=== PATIENT | male | born 1960 | race Caucasian/White ===

== ENCOUNTER 2017-12-09 12:16 | Emergency (ER) | payer OTHER | END 2017-12-09 13:33 | disposition left against medical advice (07) | LOC: ERS 12:16 | DX: Z53.21 Procedure and treatment not carried out due to patient leaving prior to being seen by health care provider (principal) | CPT/HCPCS: 93005 ==

== ENCOUNTER 2021-01-21 10:54 | Emergency (ER) | payer OTHER ==
[2021-01-21 11:19] LABS: #Basophils 0.1 thou/uL (0.0-0.2); #Eosinphils 0.1 thou/uL (0.0-0.7); #Lymphocytes 2.2 thou/uL (1.20-3.40); #Neutrophils 7.4 thou/uL (1.40-6.50); %Basophils 0.5 % (0.0-1.0); %Eosinophils 0.7 % (0.0-10.0); %Lymphocytes 20.1 % (21.0-51.0); %Monocytes 9.1 % (0.0-10.0); %Neutrophils 69.6 % (42.0-75.0); Hemoglobin 16.9 g/dL (14.0-18.0); Mean Corpuscular HGB CONC 34.6 g/dL (32.0-36.0); Mean Corpuscular Volume 92.5 fL (78.0-98.0); Platelet Count 148 thou/uL (130-400); RBC Distribution Width 12.2 % (11.5-14.5); Red Blood Cell (RBC) Count 5.27 mill/uL (4.70-6.10); White Blood Cell (WBC) Count 10.7 thou/uL (4.8-10.8)
[2021-01-21 11:42] LABS: ALT (SGPT) 11 U/L (8-55); AST (SGOT) 16 U/L (5-34); Albumin 4.1 g/dL (3.5-5.0); Alkaline Phosphatase 73 U/L (40-110); Anion Gap 15 mmol/L (10-20); BUN (Urea Nitrogen) 18 mg/dL (8.4-25.7); Bilirubin, Total 0.5 mg/dL (0.2-1.2); Calc. Creatinine Clearance 0 mL/min (70-130); Calcium 9.9 mg/dL (7.8-10.44); Carbon Dioxide 23 mmol/L (22-29); Chloride 101 mmol/L (98-107); Globulin 3.7 g/dL (2.4-3.5); Glucose 151 mg/dL (70-105); Potassium 4.2 mmol/L (3.5-5.1); Protein, Total 7.8 g/dL (6.0-8.3); Sodium 135 mmol/L (136-145)
[2021-01-21] MEDS ORDERED: Aspirin Chewable 81 MG TAB ONE (12:47)
== END 2021-01-21 13:54 | disposition left against medical advice (07) ==
LOC: ERS 10:54
DX: R07.89 Other chest pain (principal); R00.2 Palpitations; I25.2 Old myocardial infarction; I25.10 Atherosclerotic heart disease of native coronary artery without angina pectoris; I10 Essential (primary) hypertension; F17.210 Nicotine dependence, cigarettes, uncomplicated; J43.9 Emphysema, unspecified; Z79.899 Other long term (current) drug therapy
CPT/HCPCS: 36415; 71045; 80053; 83880; 84443; 84484; 85025; 85379; 93005

== ENCOUNTER 2022-01-02 19:32 | Inpatient (IN) | payer OTHER, SELFPAY ==
[2022-01-02 20:04] LABS: #Basophils 0.1 thou/uL (0.0-0.2); #Eosinphils 0.1 thou/uL (0.0-0.7); #Lymphocytes 3.1 thou/uL (1.20-3.40); #Monocytes 0.7 thou/uL (0.11-0.59); #Neutrophils 6.4 thou/uL (1.40-6.50); %Basophils 1.1 % (0.0-1.0); %Eosinophils 1.4 % (0.0-10.0); %Lymphocytes 29.5 % (21.0-51.0); %Monocytes 6.4 % (0.0-10.0); %Neutrophils 61.8 % (42.0-75.0); Hemoglobin 17.7 g/dL (14.0-18.0); Mean Corpuscular HGB CONC 33.5 g/dL (32.0-36.0); Mean Corpuscular Hemoglobin 34.1 pg (27.0-31.0); Mean Platelet Volume 6.3 fL (7.4-10.4); Platelet Count 190 thou/uL (130-400); White Blood Cell (WBC) Count 10.4 thou/uL (4.8-10.8)
[2022-01-02] MEDS ORDERED: Aspirin Chewable 81 MG TAB ONE (20:19)
[2022-01-02 20:41] LABS: ALT (SGPT) 20 U/L (8-55); AST (SGOT) 35 U/L (5-34); Albumin 3.4 g/dL (3.4-4.8); Alkaline Phosphatase 96 U/L (40-110); Anion Gap 18 mmol/L (10-20); BUN (Urea Nitrogen) 15 mg/dL (8.4-25.7); Bilirubin, Total 0.8 mg/dL (0.2-1.2); Calc. Creatinine Clearance 0 mL/min (70-130); Calcium 9.2 mg/dL (7.8-10.44); Carbon Dioxide 26 mmol/L (23-31); Chloride 91 mmol/L (98-107); Glucose 128 mg/dL (80-115); Potassium 4.5 mmol/L (3.5-5.1); Protein, Total 7.4 g/dL (5.8-8.1); Sodium 130 mmol/L (136-145)
[2022-01-02 20:46] LABS: CKMB 2.8 ng/mL (0-6.6)
[2022-01-02] MEDS ORDERED: Furosemide 40 MG/4 ML VIAL ONE (21:40)
[2022-01-02] MEDS ORDERED: Acetaminophen 325 MG TAB PO PRN (22:15)
[2022-01-02] MEDS ORDERED: Bisacodyl 5 MG TAB PO PRN (22:20)
[2022-01-02] MEDS ORDERED: Senokot S 8.6-50 MG TAB PO PRN (22:20)
[2022-01-02] MEDS ORDERED: Lorazepam 1 MG TAB PO PRN (22:25)
[2022-01-02] MEDS ORDERED: Lorazepam 2 MG/ML VIAL IM PRN (22:25)
[2022-01-02] MEDS ORDERED: Ondansetron ODT 4 MG TAB PO PRN (22:25)
[2022-01-02] MEDS ORDERED: Nitroglycerin 0.4 MG TAB (25 Tab Bottle) SL PRN (22:28)
[2022-01-02] MEDS ORDERED: Lorazepam 1 MG TAB PO SCH (22:30)
[2022-01-02] MEDS ORDERED: Electrolyte Replacement Protocol 1 EACH FS SCH (22:30)
[2022-01-02 23:07] LABS: #Eosinphils 0.1 thou/uL (0.0-0.7); #Lymphocytes 2.4 thou/uL (1.20-3.40); #Monocytes 0.6 thou/uL (0.11-0.59); #Neutrophils 5.7 thou/uL (1.40-6.50); %Basophils 0.5 % (0.0-1.0); %Eosinophils 1.6 % (0.0-10.0); %Lymphocytes 27.1 % (21.0-51.0); %Monocytes 6.9 % (0.0-10.0); %Neutrophils 63.9 % (42.0-75.0); Hemoglobin 17.7 g/dL (14.0-18.0); Mean Corpuscular HGB CONC 33.9 g/dL (32.0-36.0); Mean Corpuscular Hemoglobin 34.8 pg (27.0-31.0); Mean Platelet Volume 6.2 fL (7.4-10.4); Platelet Count 183 thou/uL (130-400); RBC Distribution Width 12.1 % (11.5-14.5); Red Blood Cell (RBC) Count 5.11 mill/uL (4.70-6.10); White Blood Cell (WBC) Count 8.9 thou/uL (4.8-10.8)
[2022-01-02 23:18] LABS: Phosphorus 5.3 mg/dL (2.3-4.7)
[2022-01-02 23:24] LABS: Troponin I 0.052 ng/mL (< 0.028)
[2022-01-02 23:28] LABS: ALT (SGPT) 20 U/L (8-55); AST (SGOT) 31 U/L (5-34); Albumin 3.3 g/dL (3.4-4.8); Alkaline Phosphatase 102 U/L (40-110); Anion Gap 17 mmol/L (10-20); BUN (Urea Nitrogen) 15 mg/dL (8.4-25.7); Bilirubin, Total 0.7 mg/dL (0.2-1.2); Calc. Creatinine Clearance 0 mL/min (70-130); Calcium 9.1 mg/dL (7.8-10.44); Carbon Dioxide 26 mmol/L (23-31); Chloride 92 mmol/L (98-107); Globulin 3.8 g/dL (2.4-3.5); Glucose 128 mg/dL (80-115); Magnesium 1.3 mg/dL (1.6-2.6); Potassium 4.7 mmol/L (3.5-5.1); Protein, Total 7.1 g/dL (5.8-8.1); Sodium 130 mmol/L (136-145)
[2022-01-02] MEDS ORDERED: Pantoprazole 40 MG VIAL IVP SCH (23:29)
[2022-01-02 23:46] VITALS: BMI 45.5
[2022-01-02] MEDS: Nicotine 21 MG PATCH TD SCH (23:47)
[2022-01-02] MEDS: Thiamine HCl 200 MG/2 ML VIAL SLOW IVP SCH (23:47)
[2022-01-03 00:06] LABS: SARS-CoV-2 NAA Rapid Test Not Detected (NotDetected)
[2022-01-03] MEDS ORDERED: Magnesium Sulfate In Water 4 GM in Premix Bag 1 BAG IVPB SCH (00:30)
[2022-01-03 00:54] LABS: Amphetamine Not Detected (NotDetected); Barbiturates Screen Not Detected (NotDetected); Benzodiazepine Screen Not Detected (NotDetected); Cocaine Metabolite Screen Detected (NotDetected); Methadone Not Detected (NotDetected); Methamphetamine Not Detected (NotDetected); Opiate Screen Not Detected (NotDetected); Oxycodone Screen Not Detected (NotDetected); Phencyclidine (PCP) Not Detected (NotDetected); THC/Cannabinoid Screen Not Detected (NotDetected); Tricyclic Screen Not Detected (NotDetected)
[2022-01-03 02:46] LABS: Troponin I 0.041 ng/mL (< 0.028)
[2022-01-03] MEDS ORDERED: hydrALAZINE 20 MG/ML VIAL SLOW IVP SCH (04:30)
[2022-01-03] MEDS ORDERED: Furosemide 40 MG/4 ML VIAL SLOW IVP SCH (06:00)
[2022-01-03 06:22] LABS: Hemoglobin A1c 6.2 % (4.0-6.0)
[2022-01-03] MEDS: Mometasone 200 MCG/Formoterol 5 MCG 120 PUFF INHALER INH SCH ×2 (07:10→18:38)
[2022-01-03] MEDS ORDERED: Pantoprazole 40 MG VIAL IVP SCH (09:00)
[2022-01-03] MEDS: Multivit, Therapeutic 1 TAB PO SCH (09:01)
[2022-01-03] MEDS: Lorazepam 1 MG TAB PO SCH ×3 (09:02→20:24)
[2022-01-03] MEDS: Folic Acid 1 MG TAB PO SCH (09:02)
[2022-01-03] MEDS: Aspirin 81 mg Enteric Coated Tablet PO SCH (09:02)
[2022-01-03] MEDS: Heparin 5,000 UNITS/ML VIAL SC SCH ×2 (09:10→20:21)
[2022-01-03 10:54] LABS: Syphilis Antibody Nonreactive (Nonreactive); Syphilis Antibody Index 0.05 S/CO (<1.00 Non-Reactive)
[2022-01-03] MEDS ORDERED: cloNIDine 0.1 MG TAB PO PRN (15:33)
[2022-01-03] MEDS: Lorazepam 2 MG/ML VIAL SLOW IVP PRN (15:48)
[2022-01-03] MEDS: Carvedilol 6.25 MG TAB PO SCH (20:21)
[2022-01-03] MEDS: Gabapentin 300 MG CAP PO SCH (20:21)
[2022-01-03 20:33] VITALS: BP 134/86
[2022-01-03] MEDS ORDERED: QUEtiapine Fumarate ER 50 MG TAB PO SCH ×2 (21:00)
[2022-01-03] MEDS ORDERED: Lorazepam 1 MG TAB PO PRN (22:25)
[2022-01-03] MEDS: Nicotine 21 MG PATCH TD SCH (22:53)
[2022-01-03] MEDS: Thiamine HCl 200 MG/2 ML VIAL SLOW IVP SCH (22:53)
[2022-01-04] MEDS: Lorazepam 2 MG/ML VIAL SLOW IVP PRN (00:02)
[2022-01-04] MEDS: Lorazepam 1 MG TAB PO SCH ×2 (01:57→12:38)
[2022-01-04 04:01] LABS: ALT (SGPT) 15 U/L (8-55); AST (SGOT) 19 U/L (5-34); Albumin 3.3 g/dL (3.4-4.8); Alkaline Phosphatase 107 U/L (40-110); Anion Gap 14 mmol/L (10-20); BUN (Urea Nitrogen) 17 mg/dL (8.4-25.7); Bilirubin, Total 0.8 mg/dL (0.2-1.2); Calc. Creatinine Clearance 102 mL/min (70-130); Calcium 9.3 mg/dL (7.8-10.44); Carbon Dioxide 32 mmol/L (23-31); Chloride 90 mmol/L (98-107); Globulin 3.8 g/dL (2.4-3.5); Glucose 133 mg/dL (80-115); Magnesium 1.5 mg/dL (1.6-2.6); Potassium 4.9 mmol/L (3.5-5.1); Protein, Total 7.1 g/dL (5.8-8.1); Sodium 131 mmol/L (136-145)
[2022-01-04] MEDS ORDERED: Dexmedetomidine In 0.9 % NaCl 100 ML IVPB SCH (05:15)
[2022-01-04] MEDS ORDERED: Magnesium 2 GM/50 ML(in water) 2 GM in Premix Bag 1 BAG IVPB SCH (05:45)
[2022-01-04] MEDS: Mometasone 200 MCG/Formoterol 5 MCG 120 PUFF INHALER INH SCH (06:54)
[2022-01-04] MEDS ORDERED: Furosemide 20 MG TAB PO SCH (09:00)
[2022-01-04 09:21] LABS: Actual Bicarbonate (HCO3a) 37.5 mEq/L (22-28); Base Excess (BEa) 7.6 mEq/L (-2.0 to +3.0); Carboxyhemoglobin (COHb) 1.2 gm% (0.0-3.0); Hemoglobin (Hb) 18.1 g/dL (14.0-18.0); O2 Tension (PaO2), arterial 111.2 mmHg (> 80.0); Potassium - ABG Lab 5.25 mmol/L (3.70-5.30); pH, Arterial 7.33 (7.35-7.45)
[2022-01-04 09:23] LABS: Puncture Site LRA
[2022-01-04] MEDS: Gabapentin 300 MG CAP PO SCH (09:48)
[2022-01-04] MEDS: Aspirin 81 mg Enteric Coated Tablet PO SCH (09:48)
[2022-01-04] MEDS: Folic Acid 1 MG TAB PO SCH (09:48)
[2022-01-04] MEDS: Carvedilol 6.25 MG TAB PO SCH (09:48)
[2022-01-04] MEDS: Heparin 5,000 UNITS/ML VIAL SC SCH (09:49)
[2022-01-04] MEDS: Multivit, Therapeutic 1 TAB PO SCH (09:49)
[2022-01-04 13:35] VITALS: TEMP 98.2
[2022-01-04] MEDS ORDERED: Lorazepam 1 MG TAB PO PRN (22:25)
[2022-01-04] MEDS ORDERED: Lorazepam 0.5 MG TAB PO SCH (22:30)
[2022-01-05] MEDS ORDERED: Thiamine 100 MG TAB PO SCH (21:00)
[2022-01-05] MEDS ORDERED: Lorazepam 0.5 MG TAB PO PRN (22:25)
== END 2022-01-04 17:41 | disposition home or self-care (01) | DRG 896 ==
LOC: ERS 19:32 → IMCU/EMU 21:57
PROVIDERS: ADMIT Internal Medicine; ATTEND Family Medicine
PROC: HZ2ZZZZ Detoxification Services for Substance Abuse Treatment (ICD-10-PCS; principal; 2022-01-02)
DX: F10.929 Alcohol use, unspecified with intoxication, unspecified (principal); I50.33 Acute on chronic diastolic (congestive) heart failure; I13.0 Hypertensive heart and chronic kidney disease with heart failure and stage 1 through stage 4 chronic kidney disease, or unspecified chronic kidney disease; N17.9 Acute kidney failure, unspecified; E66.2 Morbid (severe) obesity with alveolar hypoventilation; Z68.41 Body mass index [BMI] 40.0-44.9, adult; R07.9 Chest pain, unspecified; N18.32 Chronic kidney disease, stage 3b; I95.9 Hypotension, unspecified; I25.10 Atherosclerotic heart disease of native coronary artery without angina pectoris; J44.9 Chronic obstructive pulmonary disease, unspecified; F19.10 Other psychoactive substance abuse, uncomplicated; F17.210 Nicotine dependence, cigarettes, uncomplicated; E03.9 Hypothyroidism, unspecified; Z88.0 Allergy status to penicillin; I25.2 Old myocardial infarction; Z79.82 Long term (current) use of aspirin; Z79.899 Other long term (current) drug therapy
CPT/HCPCS: 36415; 36600; 71045; 80053; 80061; 80306; 80307; 82553; 82607; 82746; 82805; 83036; 83735; 83880; 84100; 84443; 84484; 85025; 86780; 93005; 93306; 94640; 94660; 94760; 96374; C9113; J0360; J1644; J1940; J2060; J3411; J3475; J7620; U0002

== ENCOUNTER 2022-01-29 14:35 | Observation (INO) | payer OTHER ==
[2022-01-29 15:55] LABS: #Eosinphils 0.2 thou/uL (0.0-0.7); #Lymphocytes 2.3 thou/uL (1.20-3.40); #Monocytes 0.7 thou/uL (0.11-0.59); #Neutrophils 5.7 thou/uL (1.40-6.50); %Basophils 0.3 % (0.0-1.0); %Eosinophils 1.7 % (0.0-10.0); %Monocytes 8.1 % (0.0-10.0); %Neutrophils 63.9 % (42.0-75.0); Hemoglobin 17.7 g/dL (14.0-18.0); Mean Corpuscular HGB CONC 32.5 g/dL (32.0-36.0); Mean Corpuscular Hemoglobin 33.3 pg (27.0-31.0); Mean Platelet Volume 6.9 fL (7.4-10.4); Platelet Count 144 thou/uL (130-400); RBC Distribution Width 11.9 % (11.5-14.5); Red Blood Cell (RBC) Count 5.32 mill/uL (4.70-6.10); White Blood Cell (WBC) Count 8.9 thou/uL (4.8-10.8)
[2022-01-29 16:17] LABS: ALT (SGPT) 12 U/L (8-55); AST (SGOT) 18 U/L (5-34); Albumin 3.7 g/dL (3.4-4.8); Alkaline Phosphatase 73 U/L (40-110); Anion Gap 14 mmol/L (10-20); BUN (Urea Nitrogen) 20 mg/dL (8.4-25.7); Calc. Creatinine Clearance 0 mL/min (70-130); Calcium 9.5 mg/dL (7.8-10.44); Carbon Dioxide 26 mmol/L (23-31); Chloride 103 mmol/L (98-107); Globulin 3.8 g/dL (2.4-3.5); Glucose 106 mg/dL (80-115); Potassium 4.8 mmol/L (3.5-5.1); Protein, Total 7.5 g/dL (5.8-8.1); Sodium 138 mmol/L (136-145)
[2022-01-29] MEDS ORDERED: Furosemide 40 MG/4 ML VIAL ONE (16:21)
[2022-01-29] MEDS ORDERED: Nitroglycerin 2% Ointment 1 INCH/1 GM Packet ONE (16:21)
[2022-01-29] MEDS ORDERED: Aspirin 81 mg Enteric Coated Tablet ONE (16:21)
[2022-01-29 19:02] LABS: Troponin I 0.022 ng/mL (< 0.028)
[2022-01-29 19:46] VITALS: BMI 43.1
[2022-01-29] MEDS ORDERED: Ondansetron PF 4 MG/2 ML Vial IVP PRN (21:47)
[2022-01-29] MEDS ORDERED: Acetaminophen 325 MG TAB PO PRN (21:47)
[2022-01-29] MEDS ORDERED: Nitroglycerin 0.4 MG TAB (25 Tab Bottle) SL PRN (22:10)
[2022-01-29 22:19] LABS: Troponin I 0.025 ng/mL (< 0.028)
[2022-01-30 00:11] LABS: SARS-CoV-2 PCR by NAA Not Detected (NotDetected)
[2022-01-30 04:55] LABS: #Eosinphils 0.2 thou/uL (0.0-0.7); #Lymphocytes 2.4 thou/uL (1.20-3.40); #Monocytes 0.7 thou/uL (0.11-0.59); #Neutrophils 5.2 thou/uL (1.40-6.50); %Basophils 0.5 % (0.0-1.0); %Lymphocytes 28.2 % (21.0-51.0); %Monocytes 8.1 % (0.0-10.0); %Neutrophils 61.1 % (42.0-75.0); Hemoglobin 17.2 g/dL (14.0-18.0); Mean Corpuscular Hemoglobin 34.3 pg (27.0-31.0); Platelet Count 126 thou/uL (130-400); Red Blood Cell (RBC) Count 5.01 mill/uL (4.70-6.10); White Blood Cell (WBC) Count 8.6 thou/uL (4.8-10.8)
[2022-01-30 05:24] LABS: Anion Gap 13 mmol/L (10-20); BUN (Urea Nitrogen) 18 mg/dL (8.4-25.7); Calc. Creatinine Clearance 94 mL/min (70-130); Carbon Dioxide 29 mmol/L (23-31); Chloride 102 mmol/L (98-107); Glucose 119 mg/dL (80-115); Potassium 4.6 mmol/L (3.5-5.1); Sodium 139 mmol/L (136-145)
[2022-01-30] MEDS ORDERED: Furosemide 20 MG/2 ML VIAL SLOW IVP SCH (06:00)
[2022-01-30] MEDS ORDERED: Mometasone 200 MCG/Formoterol 5 MCG 120 PUFF INHALER INH SCH (06:30)
[2022-01-30 08:06] LABS: Amphetamine Not Detected (NotDetected); Barbiturates Screen Not Detected (NotDetected); Benzodiazepine Screen Not Detected (NotDetected); Cocaine Metabolite Screen Detected (NotDetected); Methadone Not Detected (NotDetected); Methamphetamine Not Detected (NotDetected); Opiate Screen Not Detected (NotDetected); Oxycodone Screen Not Detected (NotDetected); Phencyclidine (PCP) Not Detected (NotDetected); THC/Cannabinoid Screen Not Detected (NotDetected); Tricyclic Screen Not Detected (NotDetected)
[2022-01-30 08:36] VITALS: BP 172/83; TEMP 97.9
[2022-01-30] MEDS ORDERED: Aspirin 81 mg Enteric Coated Tablet PO SCH (09:00)
[2022-01-30] MEDS ORDERED: Carvedilol 6.25 MG TAB PO SCH (09:00)
[2022-01-30] MEDS ORDERED: Folic Acid 1 MG TAB PO SCH (09:00)
[2022-01-30] MEDS ORDERED: Gabapentin 300 MG CAP PO SCH (09:00)
[2022-01-30] MEDS ORDERED: Heparin 5,000 UNITS/ML VIAL SC SCH (09:00)
[2022-01-30] MEDS ORDERED: Thiamine 100 MG TAB PO SCH (21:00)
== END 2022-01-30 09:00 | disposition left against medical advice (07) ==
LOC: ERS 14:35 → 2SW 17:30
PROVIDERS: ADMIT Internal Medicine; ATTEND Internal Medicine
DX: I16.1 Hypertensive emergency (principal); R07.2 Precordial pain; R06.02 Shortness of breath; I13.0 Hypertensive heart and chronic kidney disease with heart failure and stage 1 through stage 4 chronic kidney disease, or unspecified chronic kidney disease; N18.30 Chronic kidney disease, stage 3 unspecified; I50.33 Acute on chronic diastolic (congestive) heart failure; I25.10 Atherosclerotic heart disease of native coronary artery without angina pectoris; F14.10 Cocaine abuse, uncomplicated; F10.11 Alcohol abuse, in remission; F17.210 Nicotine dependence, cigarettes, uncomplicated; J44.9 Chronic obstructive pulmonary disease, unspecified; I25.2 Old myocardial infarction; Z53.29 Procedure and treatment not carried out because of patient's decision for other reasons; Z91.14 Patient's other noncompliance with medication regimen; Z79.82 Long term (current) use of aspirin; Z79.899 Other long term (current) drug therapy; Z88.0 Allergy status to penicillin; Z20.822 Contact with and (suspected) exposure to COVID-19
CPT/HCPCS: 36415; 71045; 80048; 80053; 80306; 83880; 84484; 85025; 93005; 94640; 96374; 96376; G0378; J1940; J7620; U0003; U0005

== ENCOUNTER 2022-03-03 09:31 | Inpatient (IN) | payer OTHER ==
[2022-03-03] MEDS ORDERED: Acetaminophen 325 MG Suppository ONE (09:41)
[2022-03-03] MEDS ORDERED: Acetaminophen 650 MG Suppository ONE (09:41)
[2022-03-03] MEDS ORDERED: Cefepime 2 GM VIAL ONE (10:05)
[2022-03-03 10:31] LABS: Bacteria/HPF 1+ HPF (None Seen); Bilirubin Negative (Negative); Blood, Urine Negative (Negative); Clarity Cloudy (Clear); Glucose, Urine (Dipstick) Normal (Negative); Ketone, Urine Negative (Negative); Leukocyte 250 Leu/uL (Negative); Nitrite Negative (Negative); Protein, Urine (Dipstick) 30 mg/dL (Neg-Trace); RBC/HPF 0-3 HPF (0-3); Specific Gravity, Urine 1.014 (1.002-1.036); Squamous Epithelial 21-50 HPF (0-3); Urobilinogen Normal mg/dL (Less than 2)
[2022-03-03 10:35] LABS: Amphetamine Detected (NotDetected); Barbiturates Screen Not Detected (NotDetected); Benzodiazepine Screen Not Detected (NotDetected); Cocaine Metabolite Screen Detected (NotDetected); Methadone Not Detected (NotDetected); Methamphetamine Detected (NotDetected); Opiate Screen Detected (NotDetected); Oxycodone Screen Not Detected (NotDetected); Phencyclidine (PCP) Not Detected (NotDetected); THC/Cannabinoid Screen Not Detected (NotDetected); Tricyclic Screen Not Detected (NotDetected)
[2022-03-03 10:54] LABS: #Lymphocytes 2.1 thou/uL (1.20-3.40); #Monocytes 1.4 thou/uL (0.11-0.59); #Neutrophils 12.9 thou/uL (1.40-6.50); %Basophils 0.2 % (0.0-1.0); %Eosinophils 0.2 % (0.0-10.0); %Lymphocytes 12.6 % (21.0-51.0); %Monocytes 8.4 % (0.0-10.0); %Neutrophils 78.6 % (42.0-75.0); Hemoglobin 19.4 g/dL (14.0-18.0); Mean Corpuscular HGB CONC 31.8 g/dL (32.0-36.0); Mean Corpuscular Hemoglobin 33.4 pg (27.0-31.0); RBC Distribution Width 13.2 % (11.5-14.5); Red Blood Cell (RBC) Count 5.79 mill/uL (4.70-6.10); White Blood Cell (WBC) Count 16.4 thou/uL (4.8-10.8)
[2022-03-03 11:11] LABS: MDiff Complete? YES; Macrocytosis SLIGHT = 6-15 cells (100X) (0-5/hpf); Mean Platelet Volume 8.5 fL (7.4-10.4); Platelet Count 67 thou/uL (130-400); Platelet Morphology Comment Appears Decreased; Polychromasia SLIGHT = 2-3 cells (100X) (0-2/hpf)
[2022-03-03 11:15] LABS: SARS-CoV-2 NAA Rapid Test Not Detected (NotDetected)
[2022-03-03 11:17] LABS: ALT (SGPT) 1229 U/L (8-55); Acetaminophen Less than 10.0 mcg/mL (10.0-30.0); Albumin 3.5 g/dL (3.4-4.8); Alcohol Less than 10 mg/dL (Less than 10); Alkaline Phosphatase 50 U/L (40-110); Anion Gap 30 mmol/L (10-20); BUN (Urea Nitrogen) 70 mg/dL (8.4-25.7); Bilirubin, Total 2.2 mg/dL (0.2-1.2); Calc. Creatinine Clearance 0 mL/min (70-130); Carbon Dioxide 19 mmol/L (23-31); Chloride 107 mmol/L (98-107); Estimated GFR 4; Glucose 114 mg/dL (83-110); Potassium 5.3 mmol/L (3.5-5.1); Protein, Total 7.5 g/dL (5.8-8.1); Salicylate Less than 8.0 mg/dL (15.0-30.0); Sodium 151 mmol/L (136-145)
[2022-03-03] MEDS ORDERED: Vancomycin 1 GM/200 ML BAG ONE (11:19)
[2022-03-03 11:25] LABS: AST (SGOT) Greater than 3500 U/L (5-34)
[2022-03-03 11:42] LABS: Actual Bicarbonate (HCO3v) 17 mEq/L (22-28); Base Excess -13.3 mEq/L (-2.0 to +3.0); Calcium, Ionized (venous) 0.89 mmol/L (1.16-1.32); Chloride (VBG) 110 mmol/L (98-106); Hemoglobin (Hb) 20.6 g/dL (12.6-17.4); Potassium (VBG) 5.28 mmol/L (3.70-5.30); pH (venous) 7.09 (7.32-7.43)
[2022-03-03 12:08] LABS: CKMB 89.3 ng/mL (0-6.6)
[2022-03-03 12:11] LABS: CK (CPK) 9005 U/L (30-200)
[2022-03-03] MEDS ORDERED: Norepinephrine 8 MG/0.9% NS 250 ML ONE (12:17)
[2022-03-03 13:30] LABS: INR-International Normal Ratio 1.8; Prothrombin Time 20.8 sec (12.0-14.7)
[2022-03-03 13:31] LABS: PTT 42.6 sec (22.9-36.1)
[2022-03-03 13:55] LABS: Lactic Acid 2.4 mmol/L (0.5-2.2)
[2022-03-03] MEDS ORDERED: Aspirin 300 MG Suppository ONE (13:55)
[2022-03-03] MEDS ORDERED: Lorazepam 2 MG/ML VIAL ONE (13:55)
[2022-03-03 14:12] LABS: Anion Gap 28 mmol/L (10-20); BUN (Urea Nitrogen) 75 mg/dL (8.4-25.7); Calc. Creatinine Clearance 0 mL/min (70-130); Calcium 7.3 mg/dL (7.8-10.44); Carbon Dioxide 20 mmol/L (23-31); Chloride 109 mmol/L (98-107); Estimated GFR 4; Glucose 153 mg/dL (83-110); Sodium 150 mmol/L (136-145)
[2022-03-03 14:16] LABS: Potassium 6.8 mmol/L (3.5-5.1)
[2022-03-03] MEDS ORDERED: Rocuronium Bromide 10 MG/ML (10ML VIAL) ONE (14:38)
[2022-03-03] MEDS ORDERED: Ventilator Sedation Protocol 1 EACH FS ONE (15:05)
[2022-03-03] MEDS ORDERED: Morphine 4 MG/ML VIAL SLOW IVP PRN (15:15)
[2022-03-03] MEDS ORDERED: Propofol BOLUS 1,000 MG/100 ML VIAL IV PRN (15:15)
[2022-03-03] MEDS ORDERED: Lorazepam 2 MG/ML VIAL SLOW IVP PRN (15:15)
[2022-03-03] MEDS ORDERED: DISCONTINUE PREVIOUS NARCOTIC PAIN MEDICATIONS AND BENZODIAZEPINES FS SCH (15:15)
[2022-03-03] MEDS ORDERED: Fentanyl CADD 100 ML IV SCH (15:15)
[2022-03-03] MEDS ORDERED: Propofol 1,000 MG/100 ML VIAL IV PRN (15:15)
[2022-03-03] MEDS ORDERED: Fentanyl BOLUS 250 ML IVPB PRN (15:15)
[2022-03-03] MEDS ORDERED: Calcium Gluc 4.6 MEQ/10 ML (100 MG/ML) SLOW IVP SCH (15:29)
[2022-03-03] MEDS: Lactated Ringer's 1,000 ML IV SCH ×3 (16:20→22:10)
[2022-03-03 18:03] LABS: HBSAg Index 0.27 S/CO (0-0.99); Hep B Surf Ag Non-Reactive S/CO (NonReactive)
[2022-03-03] MEDS ORDERED: Albumin 5% 0 ML ONE (18:12)
[2022-03-03] MEDS ORDERED: Calcium Gluconate 9.2 MEQ in Sodium Chloride 0.9% 100 ML IVPB SCH (18:15)
[2022-03-03] MEDS ORDERED: Albumin 25% 25 GM/100 ML BOT IVPB SCH (18:15)
[2022-03-03] MEDS: Norepinephrine 8 MG/0.9% NS 250 ML IVPB SCH (18:36)
[2022-03-03 18:50] LABS: Lactic Acid 5.2 mmol/L (0.5-2.2)
[2022-03-03] MEDS ORDERED: Vancomycin 1 GM, Admixture Fee 1 EACH in Premix Bag 1 BAG IVPB SCH (21:00)
[2022-03-03] MEDS ORDERED: Famotidine 20 MG TAB PER TUBE SCH (21:00)
[2022-03-03] MEDS: Famotidine 20 MG TAB PER TUBE SCH (21:19)
[2022-03-04] MEDS: Norepinephrine 8 MG/0.9% NS 250 ML IVPB SCH ×5 (00:10→23:41)
[2022-03-04 04:19] LABS: ALT (SGPT) 960 U/L (8-55); AST (SGOT) 2770 U/L (5-34); Albumin 3.1 g/dL (3.4-4.8); Alkaline Phosphatase 40 U/L (40-110); Anion Gap 25 mmol/L (10-20); BUN (Urea Nitrogen) 66 mg/dL (8.4-25.7); Bilirubin, Direct 4.4 mg/dL (0.1-0.3); Bilirubin, Total 6.5 mg/dL (0.2-1.2); Calc. Creatinine Clearance 11 mL/min (70-130); Calcium 7.8 mg/dL (7.8-10.44); Carbon Dioxide 23 mmol/L (23-31); Chloride 104 mmol/L (98-107); Estimated GFR 5; Glucose 160 mg/dL (80-115); Potassium 4.9 mmol/L (3.5-5.1); Protein, Total 5.7 g/dL (5.8-8.1); Sodium 147 mmol/L (136-145)
[2022-03-04 05:23] LABS: Band 29 % (5-11); Large Platelets SLIGHT; Lymphocytes 15 % (21-51); MDiff Complete? YES; Metamyelocyte 7 % (0-0); Monocytes 8 % (0-10); Myelocyte 10 % (0-0); Neutrophil 29 % (42-75); Nucleated RBC 1 % (0); Platelet Morphology Comment Appears Decreased; Reactive Lymphocytes 2 % (0-10)
[2022-03-04 05:24] LABS: Hemoglobin 16.9 g/dL (14.0-18.0); Mean Corpuscular HGB CONC 31.1 g/dL (32.0-36.0); Mean Corpuscular Hemoglobin 32.6 pg (27.0-31.0); Mean Platelet Volume 10.6 fL (7.4-10.4); Platelet Count 17 thou/uL (130-400); RBC Distribution Width 13.1 % (11.5-14.5); Red Blood Cell (RBC) Count 5.17 mill/uL (4.70-6.10); White Blood Cell (WBC) Count 15.5 thou/uL (4.8-10.8)
[2022-03-04 07:30] LABS: Vancomycin, Random 13.1 ug/mL (See Comment)
[2022-03-04 08:05] LABS: Actual Bicarbonate (HCO3a) 20.1 mEq/L (22-28); Base Excess (BEa) -10.8 mEq/L (-2.0 to +3.0); Calcium, Ionized (arterial) 1.02 mmol/L (1.12-1.30); Carboxyhemoglobin (COHb) 0.3 gm% (0.0-3.0); Hemoglobin (Hb) 19.7 g/dL (14.0-18.0); O2 Tension (PaO2), arterial 87.5 mmHg (> 80.0); pH, Arterial 7.11 (7.35-7.45)
[2022-03-04 08:06] LABS: CO2 Tension 64.2 mmHg (35.0-45.0); Puncture Site RRA
[2022-03-04 08:06] LABS: Actual Bicarbonate (HCO3a) 20.7 mEq/L (22-28); Base Excess (BEa) -4.8 mEq/L (-2.0 to +3.0); CO2 Tension 39.7 mmHg (35.0-45.0); Calcium, Ionized (arterial) 0.95 mmol/L (1.12-1.30); Carboxyhemoglobin (COHb) 1.2 gm% (0.0-3.0); Hemoglobin (Hb) 17.4 g/dL (14.0-18.0); O2 Tension (PaO2), arterial 67.8 mmHg (> 80.0); Potassium - ABG Lab 5.01 mmol/L (3.70-5.30); pH, Arterial 7.33 (7.35-7.45)
[2022-03-04 08:08] LABS: ALV-art Gradient 524.275 mmHg (0-20); Puncture Site RRA
[2022-03-04] MEDS: Cefepime 1 GM in Sodium Chloride 0.9% 100 ML IVPB SCH (10:26)
[2022-03-04] MEDS ORDERED: HOLD VANCOMYCIN FOR LEVEL >20 IVP SCH (10:30)
[2022-03-04] MEDS: Famotidine 20 MG TAB PER TUBE SCH (11:02)
[2022-03-04] MEDS: Aspirin 81 mg Enteric Coated Tablet PER TUBE SCH (11:02)
[2022-03-04] MEDS ORDERED: Sodium Chloride 0.9% 1,000 ML IV SCH (12:30)
[2022-03-04] MEDS ORDERED: Albumin 25% 25 GM/100 ML BOT IVPB SCH (13:45)
[2022-03-04] MEDS: Sodium Chloride 0.45% 1,000 ML IV SCH ×3 (14:02→23:41)
[2022-03-04] MEDS ORDERED: Norepinephrine 8 MG/0.9% NS 250 ML ONE (14:04)
[2022-03-04] MEDS: Vancomycin Dialysis Sliding Scale (Wt > 99) FS SCH (16:13)
[2022-03-04] MEDS ORDERED: VANCOMYCIN 1.25 GM/250 ML BAG 1.25 GM in Premix Bag 1 BAG IVPB SCH (17:00)
[2022-03-04] MEDS ORDERED: Vancomycin 1.5 GRAM/300 ML BAG 1.5 GM in Premix Bag 1 BAG IVPB SCH (17:00)
[2022-03-04] MEDS ORDERED: Vancomycin HCl 750 MG in Sodium Chloride 0.9% 250 ML 250 ML IVPB SCH (17:00)
[2022-03-04] MEDS ORDERED: Vancomycin HCl 1.5 GM in Sodium Chloride 0.9% 250 ML 300 ML IVPB SCH (17:00)
[2022-03-04] MEDS ORDERED: Vancomycin HCl 1.25 GM in Sodium Chloride 0.9% 250 ML 250 ML IVPB SCH (17:00)
[2022-03-04] MEDS ORDERED: Vancomycin 1 GM in Premix Bag 1 BAG IVPB SCH (17:00)
[2022-03-04] MEDS ORDERED: Famotidine 20 MG TAB PER TUBE SCH (21:00)
[2022-03-05] MEDS: Norepinephrine 8 MG/0.9% NS 250 ML IVPB SCH ×4 (04:37→21:35)
[2022-03-05] MEDS: Sodium Chloride 0.45% 1,000 ML IV SCH ×5 (04:39→22:14)
[2022-03-05 05:29] LABS: ALT (SGPT) 1209 U/L (8-55); AST (SGOT) 1716 U/L (5-34); Albumin 2.9 g/dL (3.4-4.8); Alkaline Phosphatase 64 U/L (40-110); Bilirubin, Direct 6.5 mg/dL (0.1-0.3); Bilirubin, Total 9.2 mg/dL (0.2-1.2); Protein, Total 5.3 g/dL (5.8-8.1)
[2022-03-05 05:31] LABS: Anion Gap 24 mmol/L (10-20); BUN (Urea Nitrogen) 61 mg/dL (8.4-25.7); Calc. Creatinine Clearance 14 mL/min (70-130); Calcium 7.1 mg/dL (7.8-10.44); Carbon Dioxide 22 mmol/L (23-31); Chloride 97 mmol/L (98-107); Estimated GFR 6; Glucose 116 mg/dL (80-115); Potassium 5.2 mmol/L (3.5-5.1); Sodium 138 mmol/L (136-145)
[2022-03-05 05:41] LABS: CK (CPK) 6977 U/L (30-200)
[2022-03-05 06:01] LABS: Band 63 % (5-11); Hemoglobin 15.9 g/dL (14.0-18.0); Lymphocytes 2 % (21-51); MDiff Complete? YES; Mean Corpuscular HGB CONC 31.4 g/dL (32.0-36.0); Mean Corpuscular Hemoglobin 33.2 pg (27.0-31.0); Mean Platelet Volume 11.9 fL (7.4-10.4); Metamyelocyte 11 % (0-0); Monocytes 1 % (0-10); Neutrophil 23 % (42-75); Nucleated RBC 3 % (0); Platelet Count 16 thou/uL (130-400); Platelet Morphology Comment Appears Decreased; RBC Distribution Width 13.2 % (11.5-14.5); Red Blood Cell (RBC) Count 4.79 mill/uL (4.70-6.10); Toxic Granulation SLIGHT; Vacuoles SLIGHT; White Blood Cell (WBC) Count 19.3 thou/uL (4.8-10.8)
[2022-03-05] MEDS: Aspirin 81 mg Enteric Coated Tablet PER TUBE SCH (08:27)
[2022-03-05] MEDS: Cefepime 1 GM in Sodium Chloride 0.9% 100 ML IVPB SCH (09:22)
[2022-03-05] MEDS ORDERED: Pantoprazole 40 MG VIAL IVP SCH (10:45)
[2022-03-05] MEDS: Vancomycin Dialysis Sliding Scale (Wt > 99) FS SCH ×2 (16:26→17:50)
[2022-03-05] MEDS ORDERED: Vancomycin 1 GM in Premix Bag 1 BAG IVPB SCH (17:00)
[2022-03-05] MEDS: Pantoprazole 40 MG VIAL IVP SCH (21:48)
[2022-03-06] MEDS: Norepinephrine 8 MG/0.9% NS 250 ML IVPB SCH ×4 (02:02→21:54)
[2022-03-06 04:30] LABS: ALT (SGPT) 782 U/L (8-55); AST (SGOT) 622 U/L (5-34); Albumin 2.3 g/dL (3.4-4.8); Alkaline Phosphatase 76 U/L (40-110); Anion Gap 20 mmol/L (10-20); BUN (Urea Nitrogen) 47 mg/dL (8.4-25.7); Bilirubin, Direct 7.9 mg/dL (0.1-0.3); Bilirubin, Total 10.9 mg/dL (0.2-1.2); Calc. Creatinine Clearance 21 mL/min (70-130); Carbon Dioxide 22 mmol/L (23-31); Chloride 95 mmol/L (98-107); Estimated GFR 10; Glucose 131 mg/dL (80-115); Potassium 4.6 mmol/L (3.5-5.1); Protein, Total 4.8 g/dL (5.8-8.1); Sodium 132 mmol/L (136-145)
[2022-03-06] MEDS: Sodium Chloride 0.45% 1,000 ML IV SCH ×4 (05:01→22:43)
[2022-03-06 05:34] LABS: Band 33 % (5-11); Hemoglobin 15.4 g/dL (14.0-18.0); Lymphocytes 11 % (21-51); MDiff Complete? YES; Mean Corpuscular HGB CONC 31.6 g/dL (32.0-36.0); Mean Corpuscular Hemoglobin 33.2 pg (27.0-31.0); Monocytes 5 % (0-10); Neutrophil 49 % (42-75); Nucleated RBC 15 % (0); Platelet Count 14 thou/uL (130-400); Platelet Morphology Comment Appears Decreased; Reactive Lymphocytes 2 % (0-10); Red Blood Cell (RBC) Count 4.64 mill/uL (4.70-6.10); White Blood Cell (WBC) Count 10.2 thou/uL (4.8-10.8)
[2022-03-06] MEDS: Aspirin 81 mg Enteric Coated Tablet PER TUBE SCH (09:54)
[2022-03-06] MEDS: Pantoprazole 40 MG VIAL IVP SCH ×2 (11:58→22:44)
[2022-03-06] MEDS ORDERED: Vancomycin HCl 750 MG in Sodium Chloride 0.9% 250 ML 250 ML IVPB SCH (12:15)
[2022-03-06] MEDS ORDERED: Cefepime 1 GM in Sodium Chloride 0.9% 100 ML IVPB SCH (15:00)
[2022-03-06] MEDS: Vancomycin Dialysis Sliding Scale (Wt > 99) FS SCH (16:03)
[2022-03-06] MEDS ORDERED: Midazolam HCl 2 mg/2 ml Vial SLOW IVP PRN (16:45)
[2022-03-06] MEDS ORDERED: Pantoprazole 40 MG VIAL IVP SCH (22:45)
[2022-03-07] MEDS: Norepinephrine 8 MG/0.9% NS 250 ML IVPB SCH ×4 (01:52→22:05)
[2022-03-07] MEDS: Sodium Chloride 0.45% 1,000 ML IV SCH ×2 (01:53→05:58)
[2022-03-07 05:04] LABS: Anion Gap 18 mmol/L (10-20); BUN (Urea Nitrogen) 47 mg/dL (8.4-25.7); Calc. Creatinine Clearance 27 mL/min (70-130); Calcium 7.2 mg/dL (7.8-10.44); Carbon Dioxide 24 mmol/L (23-31); Chloride 91 mmol/L (98-107); Estimated GFR 13; Glucose 149 mg/dL (80-115); Potassium 4.1 mmol/L (3.5-5.1); Sodium 129 mmol/L (136-145)
[2022-03-07 05:05] LABS: ALT (SGPT) 470 U/L (8-55); AST (SGOT) 320 U/L (5-34); Albumin 2.2 g/dL (3.4-4.8); Alkaline Phosphatase 79 U/L (40-110); Bilirubin, Direct 8.8 mg/dL (0.1-0.3); Bilirubin, Total 13.2 mg/dL (0.2-1.2); CK (CPK) 1513 U/L (30-200); Protein, Total 4.8 g/dL (5.8-8.1)
[2022-03-07 05:21] LABS: Band 27 % (5-11); Hemoglobin 15.6 g/dL (14.0-18.0); Lymphocytes 7 % (21-51); MDiff Complete? YES; Mean Corpuscular HGB CONC 32.5 g/dL (32.0-36.0); Mean Corpuscular Hemoglobin 33.5 pg (27.0-31.0); Mean Platelet Volume 13.7 fL (7.4-10.4); Metamyelocyte 2 % (0-0); Monocytes 7 % (0-10); Neutrophil 57 % (42-75); Nucleated RBC 3 % (0); Platelet Count 13 thou/uL (130-400); Platelet Morphology Comment Appears Decreased; RBC Distribution Width 13.2 % (11.5-14.5); Red Blood Cell (RBC) Count 4.65 mill/uL (4.70-6.10); White Blood Cell (WBC) Count 9.9 thou/uL (4.8-10.8)
[2022-03-07 07:06] LABS: Actual Bicarbonate (HCO3a) 22.3 mEq/L (22-28); Base Excess (BEa) -0.7 mEq/L (-2.0 to +3.0); CO2 Tension 32.3 mmHg (35.0-45.0); Calcium, Ionized (arterial) 0.96 mmol/L (1.12-1.30); Carboxyhemoglobin (COHb) 1.6 gm% (0.0-3.0); Hemoglobin (Hb) 15.8 g/dL (14.0-18.0); Potassium - ABG Lab 3.93 mmol/L (3.70-5.30); pH, Arterial 7.46 (7.35-7.45)
[2022-03-07 07:34] LABS: Puncture Site RBA
[2022-03-07 07:35] LABS: ALV-art Gradient 316.425 mmHg (0-20)
[2022-03-07] MEDS: Lactated Ringer's 1,000 ML IV SCH ×2 (09:12→19:06)
[2022-03-07 09:17] LABS: Vancomycin, Random 15.7 ug/mL (See Comment)
[2022-03-07] MEDS ORDERED: Pantoprazole 40 MG VIAL IVP SCH ×3 (09:45→21:00)
[2022-03-07] MEDS: Pantoprazole 40 MG VIAL IVP SCH ×2 (11:00→21:04)
[2022-03-07 11:01] VITALS: BMI 37.3
[2022-03-07] MEDS: Vancomycin Dialysis Sliding Scale (Wt > 99) FS SCH (19:00)
[2022-03-08] MEDS: Norepinephrine 8 MG/0.9% NS 250 ML IVPB SCH (03:20)
[2022-03-08 05:45] LABS: Anion Gap 20 mmol/L (10-20); BUN (Urea Nitrogen) 73 mg/dL (8.4-25.7); CK (CPK) 1427 U/L (30-200); Calc. Creatinine Clearance 23 mL/min (70-130); Calcium 7.3 mg/dL (7.8-10.44); Carbon Dioxide 22 mmol/L (23-31); Chloride 92 mmol/L (98-107); Estimated GFR 11; Glucose 113 mg/dL (80-115); Potassium 4.4 mmol/L (3.5-5.1); Sodium 130 mmol/L (136-145)
[2022-03-08 06:36] LABS: Hemoglobin 15.1 g/dL (14.0-18.0); Mean Corpuscular HGB CONC 32.4 g/dL (32.0-36.0); Mean Corpuscular Hemoglobin 33.4 pg (27.0-31.0); Mean Platelet Volume 12.9 fL (7.4-10.4); Platelet Count 24 thou/uL (130-400); RBC Distribution Width 13.7 % (11.5-14.5); Red Blood Cell (RBC) Count 4.51 mill/uL (4.70-6.10); White Blood Cell (WBC) Count 13.9 thou/uL (4.8-10.8)
[2022-03-08 06:53] LABS: Band 31 % (5-11); Critical Call w/ Read Back ICU.UKA; Lymphocytes 12 % (21-51); MDiff Complete? YES; Monocytes 5 % (0-10); Myelocyte 1 % (0-0); Neutrophil 51 % (42-75); Platelet Morphology Comment Appears Decreased
[2022-03-08 07:14] LABS: Vancomycin, Random 14.2 ug/mL (See Comment)
[2022-03-08 07:21] VITALS: BP 108/61
[2022-03-08 07:22] VITALS: TEMP 99.5
[2022-03-08 08:03] LABS: Actual Bicarbonate (HCO3a) 21.2 mEq/L (22-28); Base Excess (BEa) -2.1 mEq/L (-2.0 to +3.0); CO2 Tension 32.8 mmHg (35.0-45.0); Calcium, Ionized (arterial) 0.93 mmol/L (1.12-1.30); Hemoglobin (Hb) 15.5 g/dL (14.0-18.0); O2 Tension (PaO2), arterial 81.3 mmHg (> 80.0); Potassium - ABG Lab 4.67 mmol/L (3.70-5.30); pH, Arterial 7.43 (7.35-7.45)
[2022-03-08 08:13] LABS: Puncture Site RRA
[2022-03-08] MEDS: Pantoprazole 40 MG VIAL IVP SCH (09:56)
[2022-03-08] MEDS ORDERED: Vancomycin 1 GM in Premix Bag 1 BAG IVPB SCH (17:00)
== END 2022-03-08 11:50 | disposition expired | DRG 870 ==
LOC: EDBD → ERS 09:31 → EDUNIT# 13:08 → CCU 13:08
PROVIDERS: ADMIT Internal Medicine; ATTEND Emergency Medicine
PROC: 5A1955Z Respiratory Ventilation, Greater than 96 Consecutive Hours (ICD-10-PCS; principal; 2022-03-03)
PROC: 3E04329 Introduction of Other Anti-infective into Central Vein, Percutaneous Approach (ICD-10-PCS; 2022-03-03)
PROC: 3E043XZ Introduction of Vasopressor into Central Vein, Percutaneous Approach (ICD-10-PCS; 2022-03-03)
PROC: 5A12012 Performance of Cardiac Output, Single, Manual (ICD-10-PCS; 2022-03-03)
PROC: 5A2204Z Restoration of Cardiac Rhythm, Single (ICD-10-PCS; 2022-03-03)
PROC: 0BH17EZ Insertion of Endotracheal Airway into Trachea, Via Natural or Artificial Opening (ICD-10-PCS; 2022-03-03)
PROC: 0D9670Z Drainage of Stomach with Drainage Device, Via Natural or Artificial Opening (ICD-10-PCS; 2022-03-03)
PROC: 06HY33Z Insertion of Infusion Device into Lower Vein, Percutaneous Approach (ICD-10-PCS; 2022-03-03)
PROC: 5A1D70Z Performance of Urinary Filtration, Intermittent, Less than 6 Hours Per Day (ICD-10-PCS; 2022-03-03)
DX: A41.1 Sepsis due to other specified staphylococcus (principal); R65.21 Severe sepsis with septic shock; G92.8 Other toxic encephalopathy; J96.01 Acute respiratory failure with hypoxia; I21.A1 Myocardial infarction type 2; J69.0 Pneumonitis due to inhalation of food and vomit; N17.0 Acute kidney failure with tubular necrosis; K72.01 Acute and subacute hepatic failure with coma; T67.01XA Heatstroke and sunstroke, initial encounter; G93.1 Anoxic brain damage, not elsewhere classified; I42.8 Other cardiomyopathies; E87.4 Mixed disorder of acid-base balance; M62.82 Rhabdomyolysis; D68.4 Acquired coagulation factor deficiency; E87.0 Hyperosmolality and hypernatremia; K62.5 Hemorrhage of anus and rectum; E87.1 Hypo-osmolality and hyponatremia; Z66 Do not resuscitate; Z20.822 Contact with and (suspected) exposure to COVID-19; Z51.5 Encounter for palliative care; R57.0 Cardiogenic shock; I45.10 Unspecified right bundle-branch block; R57.1 Hypovolemic shock; D75.1 Secondary polycythemia; E87.5 Hyperkalemia; I46.2 Cardiac arrest due to underlying cardiac condition; E86.9 Volume depletion, unspecified; F14.10 Cocaine abuse, uncomplicated; F15.10 Other stimulant abuse, uncomplicated; R74.8 Abnormal levels of other serum enzymes; E86.0 Dehydration; F17.210 Nicotine dependence, cigarettes, uncomplicated; I49.01 Ventricular fibrillation; R74.01 Elevation of levels of liver transaminase levels; Z98.890 Other specified postprocedural states; X30.XXXA Exposure to excessive natural heat, initial encounter; Z88.0 Allergy status to penicillin; Z79.899 Other long term (current) drug therapy; Z79.82 Long term (current) use of aspirin; Z59.02 Unsheltered homelessness; D69.59 Other secondary thrombocytopenia; Y92.818 Other transport vehicle as the place of occurrence of the external cause
CPT/HCPCS: 31500; 36415; 36416; 36556; 36600; 51702; 70450; 71045; 74176; 80048; 80053; 80076; 80202; 80306; 80307; 81003; 81015; 82550; 82553; 82805; 83605; 84484; 85025; 85610; 85730; 87040; 87086; 87149; 87340; 90935; 93005; 93010; 93306; 94002; 94003; 96361; 96365; 96367; 96375; C9113; G0257; J0610; J0692; J2060; J3370; J3490; J7050; J7120; P9047; U0002